=== PATIENT | female | born 1960 | race African-American/Black ===

== ENCOUNTER 2024-07-17 18:46 | Inpatient (IN) | payer MEDICARE, OTHER ==
[~2024-07-17] VITALS: Ht 157.5 cm; Wt 73.5 kg
[2024-07-17 20:23] LABS: Basophils # (auto) 0 10 ^3/uL (0-0.2); Basophils % (auto) 0.4 % (0.0-2.0); Eosinophils # (auto) 0 10 ^3/uL (0-0.8); Eosinophils % (auto) 0.4 % (0.0-7.0); Hematocrit 39.7 % (36.0-46.0); Hemoglobin 13.2 g/dL (12.2-16.2); Lymphocytes # (auto) 1.7 10 ^3/uL (0.4-5.4); Lymphocytes % (auto) 20.8 % (10.0-50.0); Mean Corpuscular Hemoglobin 28.7 pg (28.0-32.0); Mean Corpuscular Hgb Conc. 33.2 g/dL (32.0-36.0); Mean Corpuscular Volume 86.4 fL (80.0-100.0); Monocytes # (auto) 0.6 10 ^3/uL (0-1.3); Monocytes % (auto) 7.7 % (0.0-12.0); Neutrophils # (auto) 5.8 10 ^3/uL (1.6-8.6); Neutrophils % (auto) 70.7 % (37.0-80.0); Platelet Count (auto) 444 10^3/uL (140-450); Red Blood Cells 4.59 10^6/uL (4.0-5.20); Red Cell Distribution Width 13.5 % (11.8-14.3); White Blood Cell 8.2 10^3/uL (4.4-10.8)
[2024-07-17 20:39] LABS: Alanine Aminotransferase 17 U/L (7-40); Albumin 4.1 g/dL (3.2-4.8); Alkaline Phosphatase 161 U/L (46-116); Anion Gap 10 (5-15); Aspartate Aminotransferase 18 U/L (13-40); BUN/Creatinine Ratio 11.2 (10.0-20.0); Blood Urea Nitrogen 13 mg/dL (9-23); Calcium 9.7 mg/dL (8.7-10.4); Carbon Dioxide 23 mmol/L (20-30); Chloride 95 mmol/L (98-107); Potassium 4.3 mmol/L (3.5-5.1); Sodium 128 mmol/L (136-145)
[2024-07-17 20:40] LABS: Bilirubin, Total 0.6 mg/dL (0.2-1.0); Total Protein 7.5 g/dL (5.7-8.2)
[2024-07-17 20:41] LABS: Glucose 629 mg/dL (74-106)
[2024-07-17 20:42] LABS: Lactic Acid w/Reflex 2.5 mmol/L (0.4-2.0)
[2024-07-17 20:47] VITALS: PULSE 113; RESP 21; O2SAT 99
[2024-07-17] MEDS: SODIUM CHLORIDE 0.9% 1,000 ML IV ONE (21:15)
[2024-07-17] MEDS: InsuLIN REG 1unit/0.01ml Soln (100units/ml) IV ONE (21:17)
[2024-07-17] MEDS: MORPHINE SULFATE 4 MG/ML SYR/VIAL IV ONE (21:42)
[2024-07-17] MEDS: ONDANSETRON HCL 4 MG/2 ML VIAL IV ONE (21:42)
[2024-07-17 21:46] LABS: Urine Bacteria FEW /hpf (None Seen); Urine Blood Negative /uL (Negative); Urine Clarity Turbid (Clear); Urine Color Colorless (Yellow); Urine Mucus FEW (None Seen); Urine Protein, UAD Negative (Negative); Urine Specific Gravity 1.028 (1.001-1.035); Urine Urobilinogen Normal (Negative); Urine WBC 38 /hpf (0 - 5); Urine WBC Clumps PRESENT /hpf (None Seen)
[2024-07-17] MEDS: LORazepam 2MG/ML-1ML VIAL IV ONE (21:51)
[2024-07-17] MEDS ORDERED: ONDANSETRON HCL 4 MG/2 ML VIAL IV PRN (23:30)
[2024-07-17] MEDS ORDERED: DOCUSATE SOD 100 MG CAP PO PRN (23:30)
[2024-07-17] MEDS ORDERED: NITROGLYCERIN 0.4 MG SL TAB SL PRN (23:30)
[2024-07-17] MEDS ORDERED: hydrALAZINE HCL 20 MG/ML VL IV PRN (23:30)
[2024-07-17] MEDS ORDERED: DEXTROSE (50%) 50ML SYRG IV PRN (23:30)
[2024-07-17] MEDS: AZITHROMYCIN 500MG/ 250ML 250 ML IV SCH (23:52)
[2024-07-17] MEDS: cefTRIAXone 1GM/50ML D5W 50 ML IV ONE (23:52)
[2024-07-17] MEDS: AZITHROMYCIN 500MG/ 250ML 250 ML IV ONE (23:53)
[2024-07-17] MEDS: SODIUM CHLORIDE 0.9% 1,000 ML IV SCH (23:54)
[2024-07-18] VITALS (8 sets, daily range): BP systolic 109–140; BP diastolic 65–85; PULSE 68–118; RESP 16–18; TEMP 98–99.3; O2SAT 93–99
[2024-07-18] MEDS: InsuLIN REG 1unit/0.01ml Soln (100units/ml) SC SCH ×2 (00:01→09:32)
[2024-07-18] MEDS: ACCU-CHEK COMFORT CURVE STRIP VI SCH ×2 (00:12→09:37)
[2024-07-18] MEDS: IBUPROFEN 600 MG TAB PO PRN (03:36)
[2024-07-18 06:43] LABS: Basophils # (auto) 0 10 ^3/uL (0-0.2); Basophils % (auto) 0.5 % (0.0-2.0); Eosinophils # (auto) 0 10 ^3/uL (0-0.8); Eosinophils % (auto) 0.5 % (0.0-7.0); Hematocrit 34.7 % (36.0-46.0); Hemoglobin 11.8 g/dL (12.2-16.2); Lymphocytes # (auto) 1.5 10 ^3/uL (0.4-5.4); Lymphocytes % (auto) 19.6 % (10.0-50.0); Mean Corpuscular Hemoglobin 28.6 pg (28.0-32.0); Mean Corpuscular Hgb Conc. 33.9 g/dL (32.0-36.0); Mean Corpuscular Volume 84.4 fL (80.0-100.0); Monocytes # (auto) 0.8 10 ^3/uL (0-1.3); Monocytes % (auto) 10.2 % (0.0-12.0); Neutrophils # (auto) 5.4 10 ^3/uL (1.6-8.6); Neutrophils % (auto) 69.2 % (37.0-80.0); Platelet Count (auto) 365 10^3/uL (140-450); Red Blood Cells 4.12 10^6/uL (4.0-5.20); Red Cell Distribution Width 13.2 % (11.8-14.3); White Blood Cell 7.8 10^3/uL (4.4-10.8)
[2024-07-18] MEDS ORDERED: DEXTROSE (50%) 50ML SYRG IV PRN (06:45)
[2024-07-18 07:07] LABS: Alanine Aminotransferase 12 U/L (7-40); Alkaline Phosphatase 117 U/L (46-116); Anion Gap 5 (5-15); Calcium 9.4 mg/dL (8.7-10.4); Carbon Dioxide 27 mmol/L (20-30); Chloride 104 mmol/L (98-107)
[2024-07-18 07:08] LABS: Glucose 157 mg/dL (74-106)
[2024-07-18 07:10] LABS: Albumin 3.7 g/dL (3.2-4.8); Aspartate Aminotransferase 11 U/L (13-40); Bilirubin, Total 0.4 mg/dL (0.2-1.0)
[2024-07-18 07:13] LABS: Sodium 136 mmol/L (136-145)
[2024-07-18 07:30] LABS: Triglycerides 136 mg/dL (< 150)
[2024-07-18 07:31] LABS: LDL Cholesterol 69 mg/dL (< 100); Magnesium 1.9 mg/dL (1.6-2.6)
[2024-07-18 07:32] LABS: Cholesterol 151 mg/dL (< 200); HDL Cholesterol 48 mg/dL (40-59)
[2024-07-18 07:36] LABS: BUN/Creatinine Ratio 12.5 (10.0-20.0); Blood Urea Nitrogen 9 mg/dL (9-23)
[2024-07-18] MEDS: POTASSIUM CHL 20 Meq TABLET PO SCH ×2 (09:21→13:20)
[2024-07-18] MEDS: METOPROLOL TARTRATE 25 MG TAB PO SCH (09:21)
[2024-07-18] MEDS: ASPirin 81 mg TAB PO SCH (09:21)
[2024-07-18] MEDS: ENOXAPARIN SOD 40 MG/0.4 ML SYRINGE SC SCH (09:22)
[2024-07-18] MEDS: INSULIN LANTUS (GLARGINE) 1 /0.01ml (100units/ml) SC SCH (09:37)
[2024-07-18] MEDS ORDERED: IOHEXOL 350 MG/ML 100ML IJ ONE ×2 (12:16→17:54)
[2024-07-18] MEDS: MORPHINE SULFATE INJ 2 MG/ml SYRG IV PRN (13:03)
[2024-07-18] MEDS: OXYCODONE W/ ACETAMINOPHEN 5/325MG TABLET PO ONE (18:56)
[2024-07-19 01:00] VITALS: BP 125/69; PULSE 96; RESP 18; TEMP 98.8; O2SAT 99
[2024-07-19 01:01] LABS: COVID19 ANTIGEN SOFIA FIA NEGATIVE (NEGATIVE); Rapid Influenza A Negative (Negative); Rapid Influenza B Negative (Negative)
[2024-07-19] MEDS: OXYCODONE W/ ACETAMINOPHEN 5/325MG TABLET PO ONE (01:19)
[2024-07-19] MEDS: cefTRIAXone 1GM/50ML D5W 50 ML IV SCH (04:08)
[2024-07-19 05:00] VITALS: BP 128/80; PULSE 96; RESP 18; TEMP 97.8; O2SAT 96
[2024-07-19 06:50] LABS: Basophils # (auto) 0 10 ^3/uL (0-0.2); Basophils % (auto) 0.4 % (0.0-2.0); Eosinophils # (auto) 0 10 ^3/uL (0-0.8); Eosinophils % (auto) 0.4 % (0.0-7.0); Lymphocytes # (auto) 1.8 10 ^3/uL (0.4-5.4); Lymphocytes % (auto) 19.8 % (10.0-50.0); Mean Corpuscular Hemoglobin 28.5 pg (28.0-32.0); Mean Corpuscular Hgb Conc. 33.3 g/dL (32.0-36.0); Mean Corpuscular Volume 85.5 fL (80.0-100.0); Monocytes # (auto) 0.9 10 ^3/uL (0-1.3); Monocytes % (auto) 9.6 % (0.0-12.0); Neutrophils # (auto) 6.3 10 ^3/uL (1.6-8.6); Neutrophils % (auto) 69.8 % (37.0-80.0); Platelet Count (auto) 394 10^3/uL (140-450); Red Blood Cells 4.21 10^6/uL (4.0-5.20); Red Cell Distribution Width 13.6 % (11.8-14.3)
[2024-07-19] MEDS ORDERED: ACETAMINOPHEN 325 MG TAB PO PRN (07:00)
[2024-07-19 07:25] LABS: Alanine Aminotransferase 13 U/L (7-40); Albumin 4.1 g/dL (3.2-4.8); Alkaline Phosphatase 105 U/L (46-116); Anion Gap 7 (5-15); Aspartate Aminotransferase 15 U/L (13-40); BUN/Creatinine Ratio 13.1 (10.0-20.0); Blood Urea Nitrogen 11 mg/dL (9-23); Carbon Dioxide 26 mmol/L (20-30); Chloride 102 mmol/L (98-107); Glucose 167 mg/dL (74-106); Magnesium 1.8 mg/dL (1.6-2.6); Potassium 3.9 mmol/L (3.5-5.1); Sodium 135 mmol/L (136-145)
[2024-07-19 07:26] LABS: Bilirubin, Total 0.4 mg/dL (0.2-1.0); Total Protein 7.5 g/dL (5.7-8.2)
[2024-07-19 08:00] VITALS: PULSE 112
[2024-07-19 13:00] VITALS: BP 151/83; PULSE 101; RESP 18; O2SAT 96
[2024-07-19] MEDS: traMADol HCL 50 MG TAB PO PRN (13:32)
[2024-07-19] MEDS ORDERED: risperiDONE 1 MG TAB PO SCH (22:00)
== END 2024-07-19 20:50 | disposition short-term general hospital (02) | DRG 637 ==
LOC: ER 18:46 → TELE 23:31 → TELE-WESTW 07-18 02:38
PROVIDERS: ATTEND Internal Medicine Geriatric Medicine
DX: E11.10 Type 2 diabetes mellitus with ketoacidosis without coma (principal); J15.69 Pneumonia due to other Gram-negative bacteria; N17.0 Acute kidney failure with tubular necrosis; J15.9 Unspecified bacterial pneumonia; N12 Tubulo-interstitial nephritis, not specified as acute or chronic; E87.1 Hypo-osmolality and hyponatremia; I16.0 Hypertensive urgency; F17.210 Nicotine dependence, cigarettes, uncomplicated; F32.A Depression, unspecified; Z20.822 Contact with and (suspected) exposure to COVID-19; F39 Unspecified mood [affective] disorder; E87.6 Hypokalemia; Z88.6 Allergy status to analgesic agent; Z85.3 Personal history of malignant neoplasm of breast
CPT/HCPCS: 36415; 70450; 71045; 71260; 74177; 80053; 80061; 81001; 82962; 83036; 83605; 83735; 83880; 84484; 85025; 86141; 87081; 87086; 87088; 87186; 87426; 87804; 93005; 96361; 96365; 96368; 96375; G0378; J1815; J2405